=== PATIENT | female | born 1985 | race Caucasian/White ===

== ENCOUNTER 2016-08-14 15:19 | Emergency (ER) | payer OTHER ==
[~2016-08-14] VITALS: Ht 175.3 cm; Wt 89.0 kg
[~2016-08-14 15:19] MED LIST: CARAFATE1 GM PO; ENDOCET 5-3251 EACH PO; FIORICET,ESG1 TABLET PO; FLUOXETINE HCL20 MG PO; IMITREX25 MG PO; LORCET 5-325 M1 EACH PO; METHYLPREDNISOLO4 M1 PO; METOCLOPRAMIDE10 MG PO; MOTRIN800 MG PO; MULTIVITAMIN1 EAC2 PO; NAPROSYN-EC500 MG PO; NORCO 5/3251 TABLET PO; OMEPRAZOLE40 M1 PO; OXYCODONE-ACET1 EACH PO; PERCOCET 5/31 TABLET PO; PREDNISONE10 MG PO; PRILOSEC40 MG PO; SUCRALFATE1 GM PO; TOPIRAMATE25 MG PO; TRAMADOL HCL100 MG PO; TRAMADOL HCL50 MG PO; TYLENOL EXTRA500 MG PO; Tylenol Extra Streng PO; ULTRAM50 MG PO; VITAMIN B-122000 MC1 PO; Vicodin,Norco 5/325 PO; ZANTAC150 MG PO; ZOFRAN4 MG PO; celeBREX PO
[2016-08-14 16:03] LABS: BASOPHIL COUNT 0.1 K/uL (0-0.1); EOSINOPHIL (%) 0 % (0-5); HEMATOCRIT 43.8 % (36.0-46.0); IMMATURE GRANULOCYTE (%) 0.3 % (0.0-0.7); INSTRUMENT ABS NEUTROPHIL CT 4.4 K/uL; LYMPHOCYTE COUNT 1.4 K/uL (1.0-2.8); MCH 30.1 PG (29.0-34.0); MCHC 33.8 G/DL (30.0-36.0); MCV 89.2 FL (83-99); MEAN PLAT.VOLUME 9.7 uM^3 (9.5-12.4); MONOCYTE (%) 3.6 % (3-12); MONOCYTE COUNT 0.2 K/uL (0-0.8); NEUTROPHIL (%) 72.5 % (45-76); NEUTROPHIL COUNT 4.4 K/uL (1.8-6.4); PLATELET COUNT 294 K/uL (156-360); RBC DIS.WIDTH-CV 11.9 % (11.8-14.6); RBC DIS.WIDTH-SD 38.5 % (39-53); RED BLOOD COUNT 4.91 M/uL (3.80-5.20); WHITE BLOOD COUNT 6.1 K/uL (4.1-10.2)
[2016-08-14 16:11] LABS: CHLORIDE 113 mEq/L (99-109); POTASSIUM 3.9 mEq/L (3.7-5.4); SODIUM 142 mEq/L (136-147)
[2016-08-14 16:13] LABS: GLUCOSE 110 mg/dL (70-99)
[2016-08-14 16:15] LABS: ANION GAP 9 MEQ/L (2-14)
[2016-08-14 16:17] LABS: GFR ESTIMATE (CALCULATED) > 59 mL/min/
[2016-08-14 16:18] LABS: UREA NITROGEN (BUN) 11 mg/dL (9-23)
[2016-08-14 16:20] LABS: CREATINE KINASE 55 IU/L (1-294)
[2016-08-14 16:56] LABS: QUANTITATIVE HCG < 4.0 MIU/ML
[2016-08-14 17:29] LABS: ADD MIUA? YES; BILIRUBIN NEGATIVE; BLOOD MODERATE; COLOR YELLOW ((YELLOW)); GLUCOSE (STRIP) NEGATIVE; KETONES 5; LEUKOCYTES TRACE; NITRITE NEGATIVE; PROTEIN (STRIP) 30; SPECIFIC GRAVITY 1.023 (1.000-1.030)
[2016-08-14 17:32] LABS: BACTERIA 1+ /HPF; EPITHELIAL CELLS 1+ /HPF; MUCUS 2+ /LPF; RED BLOOD CELLS 0-5 /HPF (0-5)
[2016-08-14] MEDS ORDERED: ANTIVERT25 MG PO (17:47)
[2016-08-14] MEDS ORDERED: FLONASE16 G1 BOTH NARES (17:48)
[2016-08-14] MEDS ORDERED: MUCINEX D ER T1 EACH PO (17:48)
[2016-08-14 18:04] VITALS: BP 124/89
== END 2016-08-14 18:04 | disposition home or self-care (01) ==
LOC: EME 15:19
PROVIDERS: Physician Assistant
DX: H65.01 Acute serous otitis media, right ear (principal); M79.1 Myalgia; F11.23 Opioid dependence with withdrawal; E86.0 Dehydration; R42 Dizziness and giddiness; J30.9 Allergic rhinitis, unspecified; K21.9 Gastro-esophageal reflux disease without esophagitis
CPT/HCPCS: 80048; 81003; 82550; 84702; 85025; 87086; 99281; 99284; J0574

== ENCOUNTER 2016-09-11 18:55 | Emergency (ER) | payer OTHER ==
[~2016-09-11] VITALS: Ht 175.3 cm; Wt 93.8 kg
[~2016-09-11 18:55] MED LIST changes: +ANTIVERT25 MG PO; +FLONASE16 G1 BOTH NARES; +MUCINEX D ER T1 EACH PO
[2016-09-11 20:54] LABS: HEMATOCRIT 39.2 % (36.0-46.0); MCH 30.3 PG (29.0-34.0); MCHC 33.4 G/DL (30.0-36.0); MCV 90.7 FL (83-99); MEAN PLAT.VOLUME 9.6 uM^3 (9.5-12.4); PLATELET COUNT 258 K/uL (156-360); RBC DIS.WIDTH-CV 12.3 % (11.8-14.6); RBC DIS.WIDTH-SD 40.5 % (39-53); RED BLOOD COUNT 4.32 M/uL (3.80-5.20); WHITE BLOOD COUNT 4.5 K/uL (4.1-10.2)
[2016-09-11 21:04] LABS: CHLORIDE 114 mEq/L (99-109); POTASSIUM 3.9 mEq/L (3.7-5.4); SODIUM 142 mEq/L (136-147)
[2016-09-11 21:06] LABS: GLUCOSE 94 mg/dL (70-99)
[2016-09-11 21:07] LABS: ANION GAP 7 MEQ/L (2-14)
[2016-09-11 21:08] LABS: TOTAL BILIRUBIN 0.3 mg/dL (0.0-1.0)
[2016-09-11 21:09] LABS: ALKALINE PHOSPHATASE 37 IU/L (3-129)
[2016-09-11 21:10] LABS: GFR ESTIMATE (CALCULATED) > 59 mL/min/
[2016-09-11 21:11] LABS: UREA NITROGEN (BUN) 12 mg/dL (9-23)
[2016-09-11 21:18] LABS: QUANTITATIVE HCG < 4.0 MIU/ML
[2016-09-11 21:43] LABS: ADD MIUA? NO; BILIRUBIN NEGATIVE; BLOOD NEGATIVE; COLOR YELLOW ((YELLOW)); GLUCOSE (STRIP) NEGATIVE; KETONES NEGATIVE; LEUKOCYTES NEGATIVE; NITRITE NEGATIVE; PROTEIN (STRIP) NEGATIVE; SPECIFIC GRAVITY 1.016 (1.000-1.030); UCUL ADDED? NO
[2016-09-11] MEDS ORDERED: CYMBALTA20 MG PO (22:32)
[2016-09-11 22:54] VITALS: BP 110/84
== END 2016-09-11 23:00 | disposition home or self-care (01) ==
LOC: EME 18:55
DX: F11.23 Opioid dependence with withdrawal (principal); K21.9 Gastro-esophageal reflux disease without esophagitis; Z91.041 Radiographic dye allergy status
CPT/HCPCS: 74020; 80053; 81003; 84702; 85027; 99281; 99284